=== PATIENT | male | born 1985 | race Asian ===

== ENCOUNTER 2019-09-28 08:10 | Outpatient (CLI) | payer BC ==
--- NOTE | 2019-09-28 10:19 | CT ---
CT ABDOMEN WITH CONTRAST CT PELVIS WITH CONTRAST: DATE: 09/28/2019 HISTORY: 34-year-old male with epigastric pain and elevated serum lipase. TECHNIQUE: IV injection of iodinated contrast media: Administered Oral contrast media:Redicat 2 FINDINGS: Liver: Diffusely low attenuation consistent with fatty liver Spleen: Normal. Pancreas: Normal. Adrenals: Normal. Kidneys: Normal. Ureters: No dilation. Bladder: No pathology identified. Abdominal aorta: No aneurysm or dissection. Small bowel: No dilation. Colon: No adjacent fat stranding. Appendix: Normal. Free air: None. Free fluid: None. Lung bases: Clear IMPRESSION: 1) normal CT appearance of pancreas. 2) hepatic steatosis. 3) otherwise negative
== END 2019-09-28 08:11 | disposition home or self-care (01) ==
LOC: SCSCT 08:10
PROVIDERS: ATTEND Family Medicine
DX: R10.9 Unspecified abdominal pain (principal); R74.8 Abnormal levels of other serum enzymes; K76.0 Fatty (change of) liver, not elsewhere classified
CPT/HCPCS: 74177